=== PATIENT | female | born 1980 | race Caucasian/White ===

== ENCOUNTER 2017-11-08 08:06 | Emergency (ER) | payer MEDICAID ==
[~2017-11-08] VITALS: Ht 149.9 cm; Wt 104.3 kg
[2017-11-08 08:31] VITALS: Ht 149.9 cm; Wt 104.3 kg
[2017-11-08 09:22] LABS: BASOPHILS 0.5 % (0-2); EOSINOPHILS 6.1 % (0-7); HEMATOCRIT 44.2 % (36.0-48.0); HEMOGLOBIN 15.6 g/dL (12-16); IMMATURE GRANULOCYTES 0.2 % (0-5); LYMPHOCYTES 19.9 % (15-50); MCH 30.6 pg (26.0-34.0); MCHC 35.3 g/dL (31.0-37.0); MCV 86.8 fL (80.0-100.0); MONOCYTES 4.2 % (2-11); NEUTROPHILS 69.1 % (40-80); PLATELET COUNT 325 10x3/uL (130-400); RBC 5.09 10x6/uL (4.00-5.40); RDW 14.5 % (11.5-14.5); WBC 13.2 10x3/uL (4.8-10.8)
[2017-11-08 09:31] LABS: INR 1.1 (0.85-1.17); PROTIME 13.8 SECONDS (11.6-15.0)
[2017-11-08 09:32] LABS: APTT 32.4 SECONDS (22.8-39.4)
[2017-11-08 09:33] LABS: D-DIMER-QUANTITATIVE 0.33 ug/mLFEU (0.20-0.54)
[2017-11-08 09:38] LABS: ALBUMIN 3.9 g/dL (3.4-5.0); ALKALINE PHOSPHATASE 70 U/L (46-116); ALT (SGPT) 28 U/L (10-68); BILIRUBIN - TOTAL 0.59 mg/dL (0.2-1.3); CALC OSMOLALITY 272 mosm/kg (275-300); CALCIUM 9.2 mg/dL (8.5-10.1); CARBON DIOXIDE 27.3 mmol/L (21.0-32.0); CHLORIDE - SERUM 102 mmol/L (98-107); CREATININE - SERUM 0.8 mg/dL (0.6-1.3); GLUCOSE 92 mg/dL (74-106); POTASSIUM - SERUM 4.4 mmol/L (3.5-5.1); PROTEIN - SERUM 8.4 g/dL (6.4-8.2); SODIUM 137 mmol/L (136-145); UREA NITROGEN 10 mg/dL (7-18); eGFR NON AFRICAN AMERICAN 85 mL/min (90-120)
[2017-11-08 09:47] LABS: CKMB 1.7 U/L (0.0-3.6); CREATINE KINASE 129 UL (21-215); PRO BNP 91 pg/mL (0-125); TROPONIN-I < 0.017 ng/mL (0.000-0.060)
[2017-11-08] MEDS ORDERED: LOPRESSOR25 MG PO (10:27)
[2017-11-08] MEDS ORDERED: ZPAK (10:27)
[2017-11-08] MEDS ORDERED: PRINIVIL20 MG PO ×2 (10:27→10:30)
[2017-11-08] MEDS ORDERED: ZPAK PO (10:28)
[2017-11-08] MEDS ORDERED: METOPROLOL TART25 MG PO (10:30)
[2017-11-08 10:51] VITALS: BP 168/100
[2017-11-15 13:58] VITALS: Ht 149.9 cm; Wt 104.3 kg
== END 2017-11-08 10:58 | disposition home or self-care (01) ==
LOC: D.ER 08:06
PROVIDERS: Family Medicine
DX: I10 Essential (primary) hypertension (principal); J20.9 Acute bronchitis, unspecified; Z91.14 Patient's other noncompliance with medication regimen; K21.9 Gastro-esophageal reflux disease without esophagitis; R00.0 Tachycardia, unspecified

== ENCOUNTER 2017-11-13 10:15 | Inpatient (IN) | payer MEDICAID ==
[2017-11-13] VITALS (15 sets, daily range): BP systolic 024–196; BP diastolic 81–115; BMI 42.1
[~2017-11-13] VITALS: Ht 149.9 cm; Wt 95.7 kg
[~2017-11-13 10:15] MED LIST: LOPRESSOR25 MG PO; METOPROLOL TART25 MG PO; PRINIVIL20 MG PO; ZPAK; ZPAK PO
[2017-11-13 10:43] LABS: BASOPHILS 0.3 % (0-2); EOSINOPHILS 2.9 % (0-7); HEMATOCRIT 41.7 % (36.0-48.0); HEMOGLOBIN 14.7 g/dL (12-16); IMMATURE GRANULOCYTES 0.3 % (0-5); LYMPHOCYTES 24.5 % (15-50); MCH 30.6 pg (26.0-34.0); MCHC 35.3 g/dL (31.0-37.0); MCV 86.7 fL (80.0-100.0); MEAN PLATELET VOLUME 9.6 fL (7.4-10.4); MONOCYTES 4.3 % (2-11); NEUTROPHILS 67.7 % (40-80); PLATELET COUNT 379 10x3/uL (130-400); RBC 4.81 10x6/uL (4.00-5.40); RDW 14.4 % (11.5-14.5); WBC 11.9 10x3/uL (4.8-10.8)
[2017-11-13 10:56] LABS: ALBUMIN 3.8 g/dL (3.4-5.0); ALKALINE PHOSPHATASE 75 U/L (46-116); ALT (SGPT) 38 U/L (10-68); BILIRUBIN - TOTAL 0.31 mg/dL (0.2-1.3); CALC OSMOLALITY 276 mosm/kg (275-300); CALCIUM 8.9 mg/dL (8.5-10.1); CARBON DIOXIDE 31.1 mmol/L (21.0-32.0); CHLORIDE - SERUM 104 mmol/L (98-107); CREATININE - SERUM 0.8 mg/dL (0.6-1.3); GLUCOSE 89 mg/dL (74-106); POTASSIUM - SERUM 4.3 mmol/L (3.5-5.1); PROTEIN - SERUM 8.3 g/dL (6.4-8.2); SODIUM 140 mmol/L (136-145); UREA NITROGEN 9 mg/dL (7-18); eGFR NON AFRICAN AMERICAN 85 mL/min (90-120)
[2017-11-13 11:23] LABS: APTT 33.4 SECONDS (22.8-39.4); INR 1.11 (0.85-1.17); PROTIME 13.9 SECONDS (11.6-15.0)
[2017-11-13 11:25] LABS: D-DIMER-QUANTITATIVE < 0.27 ug/mLFEU (0.20-0.54)
[2017-11-13 11:36] LABS: CKMB 1.9 U/L (0.0-3.6); CREATINE KINASE 111 UL (21-215); PRO BNP 151 pg/mL (0-125); TROPONIN-I < 0.017 ng/mL (0.000-0.060)
[2017-11-13 16:37] LABS: CKMB 2.1 U/L (0.0-3.6); CREATINE KINASE 116 UL (21-215)
[2017-11-13 16:39] LABS: TROPONIN-I < 0.017 ng/mL (0.000-0.060)
[2017-11-13 21:05] LABS: CREATINE KINASE 113 UL (21-215); TROPONIN-I < 0.017 ng/mL (0.000-0.060)
[2017-11-14] VITALS (8 sets, daily range): BP systolic 147–184; BP diastolic 76–100
[2017-11-14 03:55] LABS: BASOPHILS 0.1 % (0-2); EOSINOPHILS 0 % (0-7); HEMATOCRIT 39.1 % (36.0-48.0); HEMOGLOBIN 13.7 g/dL (12-16); IMMATURE GRANULOCYTES 0.2 % (0-5); LYMPHOCYTES 10.4 % (15-50); MCH 30.1 pg (26.0-34.0); MCV 85.9 fL (80.0-100.0); MEAN PLATELET VOLUME 9.5 fL (7.4-10.4); MONOCYTES 0.7 % (2-11); NEUTROPHILS 88.6 % (40-80); PLATELET COUNT 372 10x3/uL (130-400); RBC 4.55 10x6/uL (4.00-5.40); RDW 14.4 % (11.5-14.5); WBC 14.1 10x3/uL (4.8-10.8)
[2017-11-14 04:35] LABS: ALBUMIN 3.4 g/dL (3.4-5.0); ALKALINE PHOSPHATASE 64 U/L (46-116); BILIRUBIN - TOTAL 0.22 mg/dL (0.2-1.3); CALCIUM 8.4 mg/dL (8.5-10.1); CHLORIDE - SERUM 104 mmol/L (98-107); CKMB 1.9 U/L (0.0-3.6); CREATINE KINASE 113 UL (21-215); CREATININE - SERUM 0.8 mg/dL (0.6-1.3); MAGNESIUM - SERUM 2.3 mg/dL (1.8-2.4); POTASSIUM - SERUM 3.7 mmol/L (3.5-5.1); PROTEIN - SERUM 7.7 g/dL (6.4-8.2); SODIUM 139 mmol/L (136-145); TROPONIN-I < 0.017 ng/mL (0.000-0.060); UREA NITROGEN 9 mg/dL (7-18); eGFR NON AFRICAN AMERICAN 85 mL/min (90-120)
[2017-11-14 04:47] LABS: ALT (SGPT) 28 U/L (10-68); CALC OSMOLALITY 280 mosm/kg (275-300); CARBON DIOXIDE 23.2 mmol/L (21.0-32.0); GLUCOSE 162 mg/dL (74-106)
[2017-11-15 00:03] VITALS: BP 163/92
[2017-11-15 03:36] VITALS: BP 136/76
[2017-11-15 06:43] LABS: BASOPHILS 0 % (0-2); EOSINOPHILS 0 % (0-7); HEMATOCRIT 36.1 % (36.0-48.0); HEMOGLOBIN 12.3 g/dL (12-16); IMMATURE GRANULOCYTES 0.3 % (0-5); LYMPHOCYTES 6.8 % (15-50); MCH 29.7 pg (26.0-34.0); MCHC 34.1 g/dL (31.0-37.0); MCV 87.2 fL (80.0-100.0); MEAN PLATELET VOLUME 9.6 fL (7.4-10.4); NEUTROPHILS 89.9 % (40-80); PLATELET COUNT 356 10x3/uL (130-400); RBC 4.14 10x6/uL (4.00-5.40); RDW 15.3 % (11.5-14.5)
[2017-11-15 06:54] LABS: ALKALINE PHOSPHATASE 62 U/L (46-116); ALT (SGPT) 27 U/L (10-68); BILIRUBIN - TOTAL 0.22 mg/dL (0.2-1.3); CALC OSMOLALITY 281 mosm/kg (275-300); CALCIUM 7.9 mg/dL (8.5-10.1); CARBON DIOXIDE 24.5 mmol/L (21.0-32.0); CHLORIDE - SERUM 108 mmol/L (98-107); CREATININE - SERUM 0.7 mg/dL (0.6-1.3); GLUCOSE 140 mg/dL (74-106); MAGNESIUM - SERUM 2.4 mg/dL (1.8-2.4); PROTEIN - SERUM 6.7 g/dL (6.4-8.2); SODIUM 141 mmol/L (136-145); UREA NITROGEN 11 mg/dL (7-18); eGFR NON AFRICAN AMERICAN > 90 mL/min (90-120)
[2017-11-15 06:55] LABS: POTASSIUM - SERUM 4.4 mmol/L (3.5-5.1)
[2017-11-15 12:12] VITALS: BP 146/94
[2017-11-15 13:58] VITALS: Ht 149.9 cm; Wt 95.7 kg
[2017-11-15 19:26] VITALS: BP 138/102
[2017-11-15 20:10] VITALS: BP 167/106
[2017-11-15 23:58] VITALS: BP 151/107
[2017-11-16 00:48] VITALS: BP 159/100
[2017-11-16 04:56] LABS: BASOPHILS 0 % (0-2); EOSINOPHILS 0 % (0-7); HEMATOCRIT 35.8 % (36.0-48.0); HEMOGLOBIN 12.1 g/dL (12-16); IMMATURE GRANULOCYTES 0.5 % (0-5); LYMPHOCYTES 7.7 % (15-50); MCH 29.8 pg (26.0-34.0); MCHC 33.8 g/dL (31.0-37.0); MCV 88.2 fL (80.0-100.0); MEAN PLATELET VOLUME 9.9 fL (7.4-10.4); MONOCYTES 2.3 % (2-11); NEUTROPHILS 89.5 % (40-80); PLATELET COUNT 368 10x3/uL (130-400); RBC 4.06 10x6/uL (4.00-5.40); RDW 15.5 % (11.5-14.5)
[2017-11-16 05:21] LABS: ALBUMIN 3.1 g/dL (3.4-5.0); ALKALINE PHOSPHATASE 57 U/L (46-116); ALT (SGPT) 25 U/L (10-68); BILIRUBIN - TOTAL 0.16 mg/dL (0.2-1.3); CALC OSMOLALITY 279 mosm/kg (275-300); CARBON DIOXIDE 27.5 mmol/L (21.0-32.0); CHLORIDE - SERUM 106 mmol/L (98-107); CREATININE - SERUM 0.8 mg/dL (0.6-1.3); GLUCOSE 118 mg/dL (74-106); MAGNESIUM - SERUM 2.3 mg/dL (1.8-2.4); POTASSIUM - SERUM 4.1 mmol/L (3.5-5.1); PROTEIN - SERUM 6.5 g/dL (6.4-8.2); SODIUM 140 mmol/L (136-145); UREA NITROGEN 13 mg/dL (7-18); eGFR NON AFRICAN AMERICAN 85 mL/min (90-120)
[2017-11-16 06:10] VITALS: BP 159/93
[2017-11-16 07:34] VITALS: BP 135/80
[2017-11-16] MEDS ORDERED: PRINIVIL20 MG PO (10:40)
[2017-11-16] MEDS ORDERED: LOPRESSOR25 MG PO (10:40)
[2017-11-16] MEDS ORDERED: PREDNISONE10 MG PO (10:41)
[2017-11-16] MEDS ORDERED: OMNICEF300 MG PO (10:43)
== END 2017-11-16 14:57 | disposition home or self-care (01) | DRG 203 ==
LOC: D.ER 10:15 → D.EDHOLD 14:43 → D.WS 17:06 → D.M3 11-15 18:53
PROVIDERS: Family Medicine; Family Medicine Adult Medicine
DX: J20.9 Acute bronchitis, unspecified (principal); I10 Essential (primary) hypertension; K21.9 Gastro-esophageal reflux disease without esophagitis

== ENCOUNTER 2018-11-17 16:20 | Emergency (ER) | payer MEDICAID ==
[~2018-11-17 16:20] MED LIST changes: +OMNICEF300 MG PO; +PREDNISONE10 MG PO
[2018-11-17 16:28] VITALS: Ht 149.9 cm
[2018-11-17 17:08] LABS: BASOPHILS 0.5 % (0-2); EOSINOPHILS 2.6 % (0-7); HEMATOCRIT 39.1 % (36.0-48.0); IMMATURE GRANULOCYTES 0.4 % (0-5); LYMPHOCYTES 30.3 % (15-50); MCH 30.9 pg (26.0-34.0); MCHC 35.8 g/dL (31.0-37.0); MCV 86.3 fL (80.0-100.0); MEAN PLATELET VOLUME 9.5 fL (7.4-10.4); NEUTROPHILS 60.2 % (40-80); PLATELET COUNT 330 10x3/uL (130-400); RBC 4.53 10x6/uL (4.00-5.40); RDW 14.6 % (11.5-14.5); WBC 12.9 10x3/uL (4.8-10.8)
[2018-11-17 17:41] LABS: ANION GAP 12.5 mmol/L (8-16); BILIRUBIN - TOTAL 0.51 mg/dL (0.2-1.3); CALCIUM 10.2 mg/dL (8.5-10.1); CARBON DIOXIDE 28.8 mmol/L (21.0-32.0); POTASSIUM - SERUM 4.3 mmol/L (3.5-5.1)
[2018-11-17 18:40] VITALS: BP 100/59
== END 2018-11-17 18:42 | disposition home or self-care (01) ==
LOC: D.ER 16:20
PROVIDERS: Emergency Medicine
DX: R55 Syncope and collapse (principal); N28.9 Disorder of kidney and ureter, unspecified

== ENCOUNTER → 2019-02-04 08:42 | Outpatient (CLI) | payer MEDICAID ==
--- NOTE | 2019-02-12 14:07 | ST ---
PATIENT:MIR HARRIS MEDICAL RECORD: [id number] SEX: F LOCATION:[facility] ORDER #: ADMISSION DATE: 02/04/19 AGE OF PATIENT: 38 REFERRING PHYSICIAN: INTERPRETING PHYSICIAN: CAROL STEWART MD DATE OF SERVICE: 02/04/2019 PROCEDURE: Nuclear stress test. INDICATION: Chest pain. She was exercised on standard Lexiscan protocol with 33 mCi of sestamibi injected at peak stress, 11 mCi used previously for rest images. FINDINGS: Gated SPECT reveals preserved ejection fraction at 68% with good wall motion and thickening and brightening throughout all segments. SPECT imaging Cardiolite was used as myocardial fusion agent. There is homogeneous uptake throughout all segments at rest and stress with no evidence of inducible ischemia or previous infarction. OVERALL IMPRESSION: 1. This is a normal nuclear stress test with no evidence of inducible ischemia or previous infarction. 2. Gated SPECT reveals a preserved ejection fraction at 68%. In this patient with ongoing symptomatology, the current scan does not suggest the presence of hemodynamically significant coronary artery disease. Evaluate noncardiac etiology of chest pain. TRANSINT:[id number] Voice Confirmation ID: [id number] DOCUMENT ID: [id number] CAROL STEWART MD at 1407 CC: DEX MANRIQUE MD [id number] DICTATION DATE: 02/05/19 1117 STRATEGIC BUYER: 02/06/19 0155 DEP CLI 02/04/19 [facility] [address] [place] [address]
== END | disposition home or self-care (01) ==
LOC: D.HCCARDIO 08:42
PROVIDERS: ATTEND Internal Medicine Interventional Cardiology
DX: I20.9 Angina pectoris, unspecified (principal)

== ENCOUNTER → 2019-05-01 14:52 | Outpatient (CLI) | payer OTHER ==
[2019-05-01 16:49] LABS: BASOPHILS 0.7 % (0-2); EOSINOPHILS 9.5 % (0-7); HEMOGLOBIN 13.8 g/dL (12-16); IMMATURE GRANULOCYTES 0.2 % (0-5); LYMPHOCYTES 33.1 % (15-50); MCH 30.9 pg (26.0-34.0); MCHC 33.7 g/dL (31.0-37.0); MCV 91.7 fL (80.0-100.0); MEAN PLATELET VOLUME 9.1 fL (7.4-10.4); MONOCYTES 5.1 % (2-11); NEUTROPHILS 51.4 % (40-80); RBC 4.47 10x6/uL (4.00-5.40); RDW 13.7 % (11.5-14.5); WBC 10.4 10x3/uL (4.8-10.8)
[2019-05-01 16:52] LABS: PLATELET COUNT 412 10x3/uL (130-400)
[2019-05-02 09:10] LABS: IMMUNOGLOBULIN A 255 mg/dL (87-352); IMMUNOGLOBULIN G 1085 mg/dL (700-1600); IMMUNOGLOBULIN M 119 mg/dL (26-217)
== END | disposition home or self-care (01) ==
LOC: D.RT 04-07 10:30
PROVIDERS: ATTEND Internal Medicine Pulmonary Disease
DX: J45.909 Unspecified asthma, uncomplicated (principal); J42 Unspecified chronic bronchitis